=== PATIENT | male | born 1965 | race Caucasian/White ===

== ENCOUNTER 2022-11-08 19:09 | Emergency (ER) | payer SELFPAY ==
--- NOTE | ~2022-11-08 | XR_ITS ---
EXAMINATION: XR chest 2V DATE: 11/08/2022 20:28 INDICATION: Tachycardia and lightheadedness. TECHNIQUE: PA and lateral views of the chest were obtained. COMPARISON: None FINDINGS: Mild streaky bibasilar atelectasis. No pulmonary edema, pleural effusion or pneumothorax. Heart size is normal. Age-indeterminate anterior right fifth-seventh rib fractures. IMPRESSION: 1. Mild streaky bibasilar atelectasis. Reviewed, dictated and finalized at location A.
[2022-11-08 19:07] VITALS: BP 124/79; PULSE 127; RESP 14; TEMP 36.4; O2SAT 95
--- NOTE | 2022-11-08 19:18 | ECG_ITS ---
Measurements Intervals [place] Rate: 124 P: 29 [place]: 169 QRS: 65 QRSD: 82 T: 34 QT: 311 QTc: 448 Interpretive Statements SINUS TACHYCARDIA ABNORMAL RHYTHM ECG NO PREVIOUS ECG AVAILABLE FOR COMPARISON Electronically Signed On 11-09-2022 10:59:33 CDT by Cedric Yo M.D.
[2022-11-08 20:24] LABS: Basophils Percent Auto 0.6 % (0.2-1.2); Eosinophils Absolute Auto 0.1 K/mm3 (0-0.3); Eosinophils Percent Auto 1.5 % (0-4.4); Hematocrit 46.4 % (42.0-52.0); Hemoglobin 15.5 g/dL (14.0-18.0); Immature Granulocyte Absolute 0.01 K/mm3 (0.00-0.031); Immature Granulocyte Percent A 0.1 % (0-0.5); Lymphocytes Absolute Auto 2.55 K/mm3 (0.9-3.2); Lymphocytes Percent Auto 35.3 % (18.3-44.2); Mean Corpuscular HGB Conc 33.4 g/dl (32-36); Mean Corpuscular Volume 92.8 fl (80-100); Mean Platelet Volume 9.7 fl (7.4-10.4); Monocytes Absolute Auto 0.8 K/mm3 (0.1-0.6); Monocytes Percent Auto 10.5 % (2.6-8.5); Neutrophils Absolute Auto 3.8 K/mm3 (1.3-6.7); Platelet Count Result 277 k/mm3 (150-375); Red Cell Distribution Width 14.5 % (11.5-14.5); White Blood Count 7.2 K/mm3 (4.5-10.0)
[2022-11-08 20:34] LABS: Alanine Aminotransferase 39 U/L (6-50); Albumin Level 4.7 g/dL (3.5-5.1); Alkaline Phosphatase 50 U/L (38-126); Anion Gap 5 mmol/L (8-16); Aspartate Amino Transferase 32 U/L (17-59); Bilirubin,Total 0.7 mg/dL (0.2-1.3); Blood Urea Nitrogen 16 mg/dL (9-20); Calcium 9.2 mg/dL (8.4-10.2); Carbon Dioxide 29 mmol/L (22-30); Chloride 101 mmol/L (98-107); Estimated CRCL calculation 104 ml/min; Estimated Glomerular Filt Rate > 60; Glucose 126 mg/dL (65-110); Magnesium 1.6 mg/dL (1.6-2.3); Potassium 4.1 mmol/L (3.4-5.0); Sodium 135 mmol/L (137-145)
[2022-11-08 21:10] LABS: Appearance Urine Clear (Clear); Bilirubin Urine Negative (Negative); Blood Urine Negative (Negative); Color Urine Yellow (Yellow); Glucose Urine UA Negative (Negative); Ketones Urine Negative (Negative); Leukocyte Esterase Ur Negative LEU/UL (Negative); Nitrate Urine Negative (Negative); Protein Urine Negative (Negative); Specific Grav Ur 1.014 (1.001-1.035); pH Urine 6.5 (5.0-9.0)
[2022-11-08 21:17] LABS: Add Urine Microscopic? NO
[2022-11-08] MEDS: MAGNESIUM SULF 1 GM/D5W 100 ML 1 GM/100 ML BAG IVPB (21:21)
[2022-11-08] MEDS: SODIUM CHLORIDE 0.9% IV 1,000 ML 999 ML IV CONT (21:22)
[2022-11-08 21:40] LABS: Free T4 Free Thyroxine Reflex 0.99 ng/dL (0.78-2.19)
--- NOTE | 2022-11-08 21:45 | ED.DIZZY ---
HPI - Dizziness General Chief Complaint: Dizziness Stated Complaint: NEAR SYNCOPE, TACHYCARDIC Time Seen by Provider: 11/08/22 19:34 History of Present Illness HPI Narrative: This is a 57-year-old male, past history of depression and insomnia, with recent increase of his Seroquel dose from 400 mg daily to 600 mg daily, who presents emergency department complaining of anxiety and palpitations. The patient states 2 days ago, he took his first dose of 600 mg Seroquel and felt palpitations approximately 1 hour later. He reduced the dose to 500 mg yesterday without effect. Today he took the 600 mg dose again and approximately 1 hour later felt palpitations, and anxiety. He is no other complaints and denies any other change in his health. Related Data Allergies Allergy/AdvReac Type Severity Reaction Status Date / Time No Known Allergies Allergy Verified 11/08/22 19:16 Review of Systems Review of Systems: CONSTITUTIONAL: Denies fever, chills, or sweats. CARDIOVASCULAR: Palpitations denies chest pain, or edema. RESPIRATORY: Denies cough or dyspnea. GASTROINTESTINAL: Denies abdominal pain, nausea, vomiting, or diarrhea. GENITOURINARY: Denies dysuria or hematuria. SKIN: Denies rash or itching. MUSCULOSKELETAL: Denies back pain, joint pain, or myalgia. NEUROLOGIC: Denies headache, numbness, dizziness, or weakness. PSYCHIATRIC: Anxiety denies depression. PMFSH Past Medical History Medical History Depression Insomnia Surgical History Surgical History No significant past surgical history Social History Social History Smoking status: Former smoker Alcohol intake: never Substance use: never Exam Narrative: GENERAL: Well-developed, well-nourished, and in no acute distress. HEAD: Normocephalic, atraumatic. EYES: PERRLA and EOMI. ENT: Nares clear, no rhinorrhea or epistaxis. Mucous membranes moist. Oropharynx without tonsillar hypertrophy exudate or other lesions. CHEST: Clear to auscultation. No respiratory distress. No wheezes rales or rhonchi HEART: Tachycardic with regular rhythm. No murmur heard. Normal peripheral pulses. ABDOMEN: Soft, nontender, nondistended, normal active bowel sounds. EXTREMITIES: Normal range of motion. No edema. SKIN: Warm, dry, no rash. NEURO: Alert and oriented x3. Moving all 4 limbs purposefully. PSYCH: Normal mood and affect. Course Course Emergency Course: 21:40 - CBC within normal limits. TSH slightly elevated and 4.9 with free T4 within normal limits. Chemistries demonstrate mild hyponatremia with a sodium of 135 and low normal magnesium of 1.6. UA unremarkable. Chest x-ray unremarkable. EKG demonstrates sinus tachycardia without other arrhythmia or changes concerning for ischemia. Patient was given IV fluids and IV magnesium with improvement of his heart rate to the low 90s and overall improvement. I suspect the patient's symptoms are related to his dose of Seroquel. Will discharge with recommendation to follow-up with his primary care doctor and reduce his Seroquel dose. Discussed return emergency precautions including signs/symptoms of ACS and respiratory distress. The patient voiced understanding and is comfortable with the plan. All questions answered to his satisfaction. Vital Signs Vital signs: Vital Signs Temperature 97.5 F L 11/08/22 19:07 Pulse Rate 127 H 11/08/22 19:07 Respiratory Rate 14 11/08/22 19:07 Blood Pressure 124/79 11/08/22 19:07 Pulse Oximetry 95 11/08/22 19:07 Oxygen Delivery Room Air 11/08/22 19:07 Temperature 97.5 F L 11/08/22 19:07 Pulse Rate 89 11/08/22 22:10 Respiratory Rate 17 11/08/22 22:10 Blood Pressure 124/79 11/08/22 19:07 Pulse Oximetry 94 11/08/22 22:10 Oxygen Delivery Room Air 11/08/22 19:07 MDM - Dizziness
[2022-11-08 22:10] VITALS: PULSE 89; RESP 17; O2SAT 94
[2022-11-08 22:20] LABS: Total Triiodothyronine (T3) 1.19 NG/ML (0.97-1.69)
== END 2022-11-08 22:43 | disposition home or self-care (01) ==
PROVIDERS: Emergency Provider Preventive Medicine Aerospace Medicine
DX: R00.0 Tachycardia, unspecified (principal); T43.595A Adverse effect of other antipsychotics and neuroleptics, initial encounter; F32.A Depression, unspecified; G47.00 Insomnia, unspecified; Z87.891 Personal history of nicotine dependence
CPT/HCPCS: 36415; 71046; 80053; 81003; 83735; 84439; 84443; 84480; 85025; 93005; 96365; 99284; J3475; J7030

== ENCOUNTER 2024-06-28 17:32 | Emergency (ER) | payer MEDICARE, SELFPAY ==
--- NOTE | ~2024-06-28 | CT_ITS ---
CT brain wo con Ordering provider: Nery Zendejas PA-C History: 58 years Male with . dizziness . Comparison: None. Technique: CT of the head without contrast. Radiation reduction technique utilized.The dose-length pr oduct was 681 mGy-cm. FINDINGS: BRAIN PARENCHYMA AND CSF SPACES: Mild leukoaraiosis and diffuse cortical atrophy. Mild atheromatous d isease. No midline shift, mass effect or hemorrhage. The brain parenchyma and CSF spaces are otherwi se normal. Empty sella turcica. VISUALIZED PARANASAL SINUSES: Right maxillary sinus disease. Otherwise, Well aerated. MASTOIDS: Well aerated. BONES: The bones appear intact. SOFT TISSUES: Visualized nasopharynx is normal. Superficial soft tissues are normal. IMPRESSION: No acute intracranial findings. Reviewed, dictated and finalized at location A.
--- NOTE | ~2024-06-28 | XR_ITS ---
XR chest 2V Ordering provider: Nery Zendejas PA-C History: 58 years Male with . dizziness . Comparison: November 08, 2022 FINDINGS: MEDIASTINUM: The cardiac silhouette is not enlarged. LUNGS: No infiltrates, effusions or pneumothorax. OTHER: No free air under the diaphragm. IMPRESSION: No acute cardiopulmonary pathology. Reviewed, dictated and finalized at location A.
[2024-06-28 17:32] VITALS: BP 125/76; PULSE 83; RESP 16; TEMP 36.4; O2SAT 94
[2024-06-28 17:37] VITALS: PULSE 82
--- NOTE | 2024-06-28 17:40 | ECG_ITS ---
Test Date: 2024-06-28 17:37:27 Measurements Intervals [place] Rate: 79 P: 28 [place]: 201 QRS: 28 QRSD: 94 T: 34 QT: 368 QTc: 423 Interpretive Statements SINUS RHYTHM MINIMAL Q WAVES- INFERIOR LEADS BORDERLINE T WAVE ABNORMALITY- INFERIOR LEADS BASELINE ARTIFACT- I, AVR, V1, V4 BORDERLINE ECG No previous ECG available for comparison Electronically Signed On 06-28-2024 18:52:27 CDT by Norberto Brewster D.O.
[2024-06-28 17:51] LABS: Basophils Percent Auto 0.3 % (0.2-1.2); Eosinophils Absolute Auto 0.1 K/mm3 (0-0.3); Eosinophils Percent Auto 0.4 % (0-4.4); Hematocrit 44.6 % (42.0-52.0); Hemoglobin 15.2 g/dL (14.0-18.0); Immature Granulocyte Absolute 0.03 K/mm3 (0.00-0.031); Immature Granulocyte Percent A 0.3 % (0-0.5); Lymphocytes Absolute Auto 1.55 K/mm3 (0.9-3.2); Lymphocytes Percent Auto 13.8 % (18.3-44.2); Mean Corpuscular HGB Conc 34.1 g/dl (32-36); Mean Corpuscular Hemoglobin 30.9 pg (26-34); Mean Corpuscular Volume 90.7 fl (80-100); Mean Platelet Volume 9.7 fl (7.4-10.4); Monocytes Absolute Auto 0.7 K/mm3 (0.1-0.6); Monocytes Percent Auto 6.1 % (2.6-8.5); Neutrophils Absolute Auto 8.9 K/mm3 (1.3-6.7); Neutrophils Percent Auto 79.1 % (45.5-73.1); Platelet Count Result 263 k/mm3 (150-375); Red Blood Count 4.92 M/mm3 (4.6-6.20); Red Cell Distribution Width 13.1 % (11.5-14.5); White Blood Count 11.2 K/mm3 (4.5-10.0)
--- NOTE | 2024-06-28 17:53 | ED.DIZZY ---
HPI - Dizziness General Chief Complaint: Dizziness Stated Complaint: Dizzy Time Seen by Provider: 06/28/24 17:53 Source: patient Mode of arrival: EMS Limitations: no limitations History of Present Illness HPI Narrative: Patient is a 58 y/o female who presents to the ED via EMS with report of dizziness. Patient reports he began feeling dizzy around 2:00 p.m. while shopping at [employer]. 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 EMS was then called. Patient describes dizziness as lightheaded and somewhat room spinning sensation. It is worse with moving his head in any direction. He has never had symptoms like this before. He did report having a headache and nausea of earlier today, took ibuprofen and this is improved. He was given Zofran by EMS. Denies vision changes. Denies focal numbness or weakness. Denies chest pain, shortness of breath. Denies ear pain or ringing. Denies recent cough or cold symptoms. Related Data Allergies Allergy/AdvReac Type Severity Reaction Status Date / Time No Known Allergies Allergy Verified 06/28/24 17:47 Review of Systems Review of Systems: All systems reviewed & are unremarkable except as noted in HPI. All systems reviewed & are unremarkable except as noted in HPI and below PMFSH Past Medical History Medical History Depression Insomnia Surgical History Surgical History No significant past surgical history Social History Social History Smoking status: Former smoker Alcohol intake: never Substance use: never Exam Narrative: GENERAL: Chronically ill-appearing, morbidly obese with BMI of 42.6, non-toxic, in no acute distress. HEAD: Normocephalic, atraumatic. EYES: PERRL/EOMI, conjunctivae clear bilaterally. No nystagmus. No dizziness elicited with eye movements alone. ENT: L cerumen impaction. R TM clear, minimal cerumen present in canal. NECK: Supple. No meningeal signs. RESPIRATORY: Airway patent, respirations nonlabored. Clear to auscultation bilaterally, no rales, rhonchi, wheezing. CARDIOVASCULAR: Regular rate and rhythm without murmurs, rubs, or gallops. Peripheral pulses 2+ and equal bilaterally. MUSCULOSKELETAL: Moves all extremities. No gross deformities. SKIN: Warm, dry, normal color. No rashes. NEURO: A&O X3. Speech clear. Follows commands. CN II-XII grossly intact. Sensation grossly intact. Steady gait. No ataxic movements. Dizziness elicited with turning head left, right, up. Strength 5/5 in upper and lower extremities bilaterally. [id number]-ro-[id number] and ltypyq-yb-[id number] testing intact bilaterally. No pronator drift. Equal diesel engine operator strength bilaterally. PSYCHIATRIC: Appropriate mood and affect. Normal interaction. Course Vital Signs Vital signs: Vital Signs Temperature 97.5 F L 06/28/24 17:32 Pulse Rate 83 06/28/24 17:32 Respiratory Rate 16 06/28/24 17:32 Blood Pressure 125/76 06/28/24 17:32 Pulse Oximetry 94 06/28/24 17:32 Oxygen Delivery Autopap 06/28/24 17:32 Temperature 97.5 F L 06/28/24 17:32 Pulse Rate 79 06/28/24 19:54 Respiratory Rate 17 06/28/24 19:54 Blood Pressure 132/95 H 06/28/24 19:54 Pulse Oximetry 100 06/28/24 19:54 Oxygen Delivery Autopap 06/28/24 17:32 MDM - Dizziness MDM Narrative Medical decision making narrative: Patient presented to ED with dizziness that began today, worse with head movements. Vital signs are stable upon arrival. Patient is in no acute distress. He is neurologically intact upon my evaluation. No focal deficits or cerebellar signs. Exam is notable for left cerumen impaction. Debrox and ear irrigation was ordered. Large amount of cerumen irrigated by ED nurse. Patient feeling much better. Repeat exam of here does not reveal any signs of AOE/AOM. EKG with normal sinus rhythm, no concerning ST changes. Patient is denying any chest pain or shortness breath. Oxygen is stable on room air. Troponin is undetectable. Basic laboratory studies with minimal leukocytosis 11.2. H&H is stable. Sodium 131, minimal anion gap of 15. Given fluids. Stable kidney function. Blood glucose 210. No evidence of DKA. Patient is on several medications for diabetes. Magnesium was low 1.4. Given IV replacement. I discussed this with patient. He reports he has history of low magnesium in the past. Had previously been on supplementation, but states he recently ran out of this. CT brain negative. Chest x-ray is clear. Patient given fluids, Zofran, Tylenol, meclizine. On re-evaluation, patient is feeling significantly improved. States dizziness is markedly improved. He has been able to ambulate to and from the bathroom without assistance without issue. States he is ready to go home at this time. Feels comfortable going home. He lives in [place]. Advised to follow-up closely with PCP upon returning home. Will prescribe meclizine and Zofran for home use. Advised strict return precautions, including signs or symptoms of CVA. Patient voiced understanding. Feels comfortable going home. Discharged in stable condition. Remained neurologically intact at time of D/C. Medical Records Attestation: I reviewed the patient's medical records. Lab Data Attestation: I reviewed the patient's lab results. 06/28/24 17:45 06/28/24 17:45 Labs: Lab Results 06/28/24 Range/Units 17:45 WBC 11.2 H (4.5-10.0) K/mm3 RBC 4.92 (4.6-6.20) M/mm3 Hgb 15.2 (14.0-18.0) g/dL Hct 44.6 (42.0-52.0) % MCV 90.7 (80-100) fl MCH 30.9 (26-34) pg MCHC 34.1 (32-36) g/dl RDW 13.1 (11.5-14.5) % Plt Count 263 (150-375) k/mm3 MPV 9.7 (7.4-10.4) fl Immature Gran % (Auto) 0.3 (0-0.5) % Neut % (Auto) 79.1 H (45.5-73.1) % Lymph % (Auto) 13.8 L (18.3-44.2) % [place] % (Auto) 6.1 (2.6-8.5) % Eos % (Auto) 0.4 (0-4.4) % Baso % (Auto) 0.3 (0.2-1.2) % Lymph # (Auto) 1.55 (0.9-3.2) K/mm3 Victoria # (Auto) 0.7 H (0.1-0.6) K/mm3 Eos # (Auto) 0.1 (0-0.3) K/mm3 Baso # (Auto) 0.0 (0.0-0.1) K/mm3 Abs Immat Gran (auto) 0.03 (0.00-0.031) K/mm3 Absolute Neuts (auto) 8.9 H (1.3-6.7) K/mm3 Absolute Nucleated RBC 0.000 (0.0-0.012) K/mm3 Nucleated RBC % 0.0 (0.0-0.2) % PT 13.5 (11.1-14.7) Seconds INR 1.0 APTT 29.4 (22.3-36.8) Seconds Sodium 131 L (137-145) mmol/L Potassium 3.5 (3.4-5.0) mmol/L Chloride 94 L (98-107) mmol/L Carbon Dioxide 22 (22-30) mmol/L Anion Gap 15 H (4-12) mmol/L BUN 9 D (9-20) mg/dL Creatinine 0.74 (0.7-1.3) mg/dL Estim Creat Clear Calc 132 ml/min Estimated GFR > 60 (59 - ) Glucose 210 H (65-110) mg/dL Calcium 8.7 (8.4-10.2) mg/dL Magnesium 1.4 L (1.6-2.3) mg/dL Total Bilirubin 0.8 (0.2-1.3) mg/dL AST 31 (17-59) U/L ALT 44 (6-50) U/L Alkaline Phosphatase 68 (38-126) U/L Troponin I < 0.012 (0.000-0.034) ng/mL Total Protein 8.0 (6.3-8.2) g/dL Albumin 4.6 (3.5-5.1) g/dL Imaging Data Attestation: I personally reviewed and interpreted this imaging study as follows: Radiologist's impression: ITS Impressions Head CT 06/28/24 18:15 IMPRESSION: No acute intracranial findings. Chest X-Ray 06/28/24 18:22 IMPRESSION: No acute cardiopulmonary pathology. ECG Data EKG #1: Attestation: I personally reviewed and interpreted this ECG as follows: ECG completion date: 06/28/24 ECG completion time: 17:37 EKG Interpretation: normal rate (79), sinus rhythm and no ST changes Discharge Plan Discharge Clinical Impression: Left ear impacted cerumen, Hypomagnesemia Benign paroxysmal positional vertigo Qualifiers: Laterality: left Qualified Code(s): H81.12 - Benign paroxysmal vertigo, left ear Patient Disposition: Home Condition: Stable Instructions: Antibiotic Form, Vertigo (ED), Benign Paroxysmal Positional Vertigo (ED), Hypomagnesemia (ED), Dizziness (ED) Additional Instructions: Stay well hydrated. Utilize meclizine as needed for further dizziness. Utilize Zofran as needed for nausea. You may use qqvp-[id number]-dowlxhj Debrox ear drops to help with wax buildup in your ears. Follow-up closely with your primary care doctor for further evaluation. Return to ED if you experience worsening or severe symptoms, severe dizziness, passing out, chest pain, difficulty breathing, numbness or weakness of arm or leg, vision changes, or any other symptoms of concern. Your magnesium was low today. This was replaced in the ED. Follow-up with your primary for further management of this. Continue magnesium supplements as previously prescribed. Patient Language: Wallisian Prescriptions: New meclizine 25 mg tablet 25 mg PO TID PRN (Reason: dizziness) Qty: 15 0RF ondansetron 4 mg tablet,disintegrating 4 mg PO Q8H PRN (Reason: nausea and vomiting) Qty: 15 0RF Follow-up/Referrals: PHYSICIAN NOT ON STAFF,NONSTAFF [Primary Care Provider] - Time of Disposition: 21:07
[2024-06-28] MEDS: ACETAMINOPHEN 500 MG TABLET 1000 MG PO (18:03)
[2024-06-28] MEDS: MECLIZINE HCL 25 MG TABLET PO (18:03)
[2024-06-28] MEDS: SODIUM CHLORIDE 0.9% IV 1,000 ML 999 ML IV CONT (18:03)
[2024-06-28 18:05] LABS: Prothrombin Time 13.5 Seconds (11.1-14.7)
[2024-06-28 18:06] LABS: Partial Thromboplastin Time 29.4 Seconds (22.3-36.8)
[2024-06-28 18:13] LABS: Albumin Level 4.6 g/dL (3.5-5.1); Alkaline Phosphatase 68 U/L (38-126); Anion Gap 15 mmol/L (4-12); Aspartate Amino Transferase 31 U/L (17-59); Bilirubin,Total 0.8 mg/dL (0.2-1.3); Blood Urea Nitrogen 9 mg/dL (9-20); Calcium 8.7 mg/dL (8.4-10.2); Carbon Dioxide 22 mmol/L (22-30); Chloride 94 mmol/L (98-107); Estimated CRCL calculation 132 ml/min; Estimated Glomerular Filt Rate > 60; Glucose 210 mg/dL (65-110); Magnesium 1.4 mg/dL (1.6-2.3); Potassium 3.5 mmol/L (3.4-5.0); Sodium 131 mmol/L (137-145)
[2024-06-28 18:19] LABS: Alanine Aminotransferase 44 U/L (6-50)
[2024-06-28 18:20] LABS: Troponin I < 0.012 ng/mL (0.000-0.034)
--- OUTSIDE RECORDS SUMMARY | 2024-06-28 18:25 | XMS_ITS | Referral Summary ---
Author Organization [facility] Address [address] [place] [id number] Care Team Providers Care Pipe Organ Tuner And Repairer Name Role Phone Pcp, No Primary Care Provider Unavailabl e Allergies No known active allergies Social History Tobacco Use Types Packs/Day Years Used Date Smoking Tobacco: Never Assessed Inadequate Housing Answer Date Recorded Social Determinants: Housing (Overall Score Help er) 0 09/07/2019 Sex and Gender Information Value Date Recorded Sex Assigned at Not on file Legal Sex Male 8:17 PM CDT Gender Identity Not on file Sexual Orientation Not on file Last Filed Vital Signs Vital Sign Reading Time Taken Comments Blood Pressure 145/100 09/07/2019 8:46 PM CDT Pulse 132 09/07/2019 8:46 PM CDT Temperature 36.9 C (98.4 F) 09/07/2019 8:46 PM CDT Respiratory Rate 22 09/07/2019 8:46 PM CDT Oxygen Saturation 95% 09/07/2019 8:46 PM CDT Inhaled Oxygen Concentration - - Weight - - Height - - Body Mass Index - - Plan of Treatment Not on file Insurance Care Teams Pipe Organ Tuner And Repairer Relationship Specialty Start Date End Date Pcp, No PCP - General 09/07/19
--- OUTSIDE RECORDS SUMMARY | 2024-06-28 18:25 | XMS_ITS | Encounter Summary ---
Author Organization [facility] Address [address] [place] [address] Care Team Providers Care Db2 Systems Programmer Name Role Phone , [facility] Primary Care Provider Trinity vailable Scott Morel DO Primary Care Provider [phone] , [facility] Primary Care Provider Trinity vailable Encounter Details Date Type Department Care Team (Late st Contact Info) Description 11/21/2007 Procedure Historic [place] GENERIC DEFAULT Velasquez Adames MD [address] [place] [address] Social History Tobacco Use Types Packs/Day Years Used Date Smoking Tobacco: Never Assessed Sex and Gender Information Value Date Recorded Sex Assigned at Not on file Legal Sex Male 8:06 AM CDT Gender Identity Not on file Sexual Orientation Not on file documented as of this encounter Plan of Treatment Not on file documented as of this encounter Procedures Procedure Name Priority Date/Time Associated Diagnosis Comments COLONOSCOPY Routine 11/21/2007 12:00 AM CDT documented in this encounter Results * COLONOSCOPY (11/21/2007 12:00 AM CDT) 11/21/2007 us Velasquez Adames MD HEALTH MAINTENANCE Final Result documented in this encounter Visit Diagnoses Not on filedocumented in this encounter Care Teams Db2 Systems Programmer Relationship Specialty Start Date End Date [facility] HOSPITAL USERS: [place] FOR HOSPITAL DISCHARGES ONLY / CLINIC USERS: DO NOT USE PCP - General 11/30/17 12/18/17 Scott Moerl DO HOSPITAL USERS: [place] FOR HOSPITAL DISCHARGES ONLY / CLINIC USERS: DO NOT USE PCP - General Family Medicine 12/19/17 01/01/19 , [facility] HOSPITAL USERS: [place] FOR HOSPITAL DISCHARGES ONLY / CLINIC USERS: DO NOT USE PCP - General 01/02/19 documented as of this encounter
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
--- OUTSIDE RECORDS SUMMARY | 2024-06-28 18:25 | XMS_ITS | Clinical Summary ---
Author Organization [facility] Address [address] [place] [address] Care Team Providers Care Millwright Apprentice Name Role Phone Designated, None Primary Care Provider [phone] Allergies No known active allergies Medications omeprazole (PRILOSEC) 20 mg Oral capsule,delayed release(DR/EC)In dications:Diabet es mellitus type II, uncontrolled take 1 capsule by mouth daily Take on an empty stomach. , Active ibuprofen (ADVIL,MOTRIN) 200 mg Oral tabletIndication s:Diabetes mellitus type II, uncontrolled take 200 mg by mouth every 6 (six) hours, Active FREESTYLE LITE STRIPS stripIndications :Diabetes mellitus type II, uncontrolled Test one time daily while on oral therapy. Dx: E11.65, 100 Bottle 4 6 Active Lancets miscIndications: Diabetes mellitus type II, uncontrolled Test one time daily while on oral therapy. Dx: E11.65, 100 Box 4 6 Active ammonium lactate (LAC-HYDRIN) 12 % Topical lotionIndication s:Hyperkeratosis Apply to affected areas of feet twice daily., 1 Bottle 4 6 Active varenicline (CHANTIX) 0.5 mg (11)- 1 mg (42) Oral tablets,dose packIndications: smoking cessation 0.5 mg once daily for 3 days, 0.5 mg twice daily for 4 days, then 1 mg twice daily thereafter, 1 Package 0 6 Active Additional Information Patient not taking.Reported on 04/23/2017 varenicline (CHANTIX) 1 mg Oral tabletIndication s:smoking cessation take 1 tablet by mouth 2 (two) times daily Start this after the starter pack, 60 tablet 1 6 Active Additional Information Patient not taking.Reported on 04/23/2017 amitriptyline (ELAVIL) 10 mg Oral tablet take 10 mg by mouth nightly, Active cephALEXin (KEFLEX) 500 mg Oral capsule take 500 mg by mouth every 8 (eight) hours 1 capsule 2 times a day for 10 days , Active escitalopram oxalate (LEXAPRO) 10 mg Oral tablet take 10 mg by mouth, Active Balsam [place] Oil (VENELEX) 87-788 mg/gram Topical ointment by Topical route 2 (two) times daily, Active LORazepam (ATIVAN) 0.5 mg Oral tablet take 0.5 mg by mouth nightly as needed, Active oxyCODONE-acetam inophen (PERCOCET) 5-325 mg Oral tablet take 1 tablet by mouth every 4 (four) hours as needed, for Pain Active propranolol (INDERAL) 20 mg Oral tablet take 20 mg by mouth 2 (two) times daily, Active diazepam (VALIUM) 10 mg Oral tablet take 10 mg by mouth nightly as needed, for Anxiety Active metFORMIN (GLUCOPHAGE-XR) 500 mg Oral tablet extended release 24 hr tabletIndication s:type 2 diabetes mellitus take 1 tablet by mouth daily, 90 tablet 4 6 Active QUEtiapine (SEROQUEL) 25 mg Oral tablet take 25 mg by mouth 3 (three) times daily, Active atomoxetine (STRATTERA) 60 mg Oral capsule take 60 mg by mouth daily, Active Active Problems Problem Noted Date Diagnosed Date Diabetes mellitus type II, uncontrolled 04/14/19 16 Tobacco abuse 04/14/2015 Alcohol use 04/14/2015 Hyperkeratosis 04/14/2015 Immunizations Immunization Administration Dates Next Due Pneumococcal polysaccharide PPSV23 (Pneumovax) 0 04/14/2015 TDAP (Boostrix/Adacel) 2007 Family History Medical History Relation Name Comments Cancer Father Diabetes Mother High Cholesterol Mother Relation Name Status Comments Father Mother Alive Social History Tobacco Use Types Packs/Day Years Used Date Smoking Tobacco: Every Day Cigarettes 2 30 Smokeless Tobacco: Never Tobacco Cessation:Ready to Q uit: Yes; Counseling Given: Yes Alcohol Use Standard Drinks/Week Comments Yes 0 (1 standard drink = 0.6 oz pur e alcohol) 20 drinks a week PHQ-2 Answer Date Recorded PHQ-2 Total Score 0 04/17/2022 Sex and Gender Information Value Date Recorded Sex Assigned at Not on file Legal Sex Male 3:59 AM CDT Gender Identity Not on file Sexual Orientation Not on file Last Filed Vital Signs Vital Sign Reading Time Taken Comments Blood Pressure 105/78 04/17/2022 9:52 AM CREASING AND CUTTING PRESS FEEDER Pulse 115 04/17/2022 9:52 AM CREASING AND CUTTING PRESS FEEDER Temperature 36.3 C (97.4 F) 04/17/2022 9:52 AM CREASING AND CUTTING PRESS FEEDER Respiratory Rate 16 04/17/2022 9:52 AM CREASING AND CUTTING PRESS FEEDER Oxygen Saturation 97% 04/17/2022 9:52 AM CREASING AND CUTTING PRESS FEEDER Inhaled Oxygen Concentration - - Weight 124.7 kg (275 lb) 04/17/2022 9:52 AM CREASING AND CUTTING PRESS FEEDER Height 177.8 cm (5' 10 ) 04/17/2022 9:52 AM CREASING AND CUTTING PRESS FEEDER Body Mass Index 39.46 04/17/2022 9:52 AM CREASING AND CUTTING PRESS FEEDER Plan of Treatment Health Maintenance Due Date Last Done Comments Diabetes Eye Exam Yearly 1976 Diabetes Urine Microalbumin 1976 COLON CANCER SCREENING 10 YEAR COLONOSCOPY 09/02/2011 Diabetes Hemoglobin A1C 01/07/2016 07/08/19 16, 04/14/2015 Pneumococcal Vaccine: 50+ Years (2 of 2 - PCV) 04/14/2016 04/14/2015 Diabetes Foot Exam 07/07/2016 07/08/2015, 04/14/2015 Shingles (Zoster) Vaccine (1 of 2) 2016 DTAP/TDAP/TD VACCINES (2 - T d or Tdap) 08/31/2017 2007 COVID-19 Vaccine (2 - 2023-2 5 season) 2023 07/07/2020 INFLUENZA VACCINE 11/17/2024 04/05/2017 HPV VACCINES Aged Out No longer eligi ble based on patient's age to complete this topic Procedures Procedure Name Priority Date/Time Associated Diagnosis Comments POC HGB A1C CLINIC Routine 07/08/2015 Diabetes mellitus type II, uncontrolled from Last 3 Months or Most Recently Relevant to Health Maintenance Results * (ABNORMAL) POC HGB A1C CLINIC (07/08/2015) Hemoglobin A1C% (Waived) 5.7(A) 4.8 - 5.6 % POCT Performed By A1C [id number] A1C Ref Range 1 Values less than 5.6%=Normal A1C Ref Range 2 Values 5.7% to 6.4%= Category of increased risk for diabetes/pre-d iabetes A1C Ref Range 3 Values 6.5% or greater = Highly suspicious for diabetes (see Note) A1C Note 1 A1c 6.5% or greater is typical of diabetes, but initally should be confirmed with A1C Note 2 clinical findings and/or other abnormal lab tests such as A1C Note 3 glucose tolerance testing, and/or random blood glucose Blood specimen (specimen) VENOUS BLOOD SPECIMEN / Unknown 07/08/2015 Rashel Erwin MD [facility] Final Result from Last 3 Months or Most Recently Relevant to Health Maintenance Insurance [place] [employer] [place] MEDICARE PART A AND B Care Teams Millwright Apprentice Relationship Specialty Start Date End Date Designated, None, [address] [place] [address] PCP - General 07/12/14
--- OUTSIDE RECORDS SUMMARY | 2024-06-28 18:25 | XMS_ITS | Clinical Summary ---
Author Organization [facility] Address [address] [place] [id number] Care Team Providers Care Turner And Former Automatic Name Role Phone Pcp, No Primary Care [...] Mass Index - - Plan of Treatment Health Maintenance Due Date Last Done Comments Depression Screening 1977 Hepatitis B Vaccine (1 of 3 - 19+ 3-dose series) 1985 CT Colonography 09/02/2011 Cologuard 09/02/2011 Colonoscopy 09/02/2011 Colorectal Cancer Screening 09/02/2011 Fecal Occult Blood 09/02/2011 Sigmoidoscopy 09/02/2011 Pneumococcal Vaccine 50+ (2 of 2 - PCV) 2016 04/14/2015 Shingles Vaccine (1 of 2) 2016 DTaP/Tdap/Td Vaccine (2 - Td or Tdap) 08/31/2017 2007 COVID-19 Vaccine (2023-2 5 season) 2023 Influenza Vaccine (Season Ended) 2024 HPV Vaccine Aged Out No longer eligi ble based on patient's age to complete this topic Hepatitis A Vaccine Aged Out No longe r eligible based on patient's age to complete this topic Meningococcal Serogroup B Vaccine Aged Out No longer eligible based on patient's age to complete this topic Meningococcal Vaccine Aged Out No [place] eligible based on patient's age to complete this topic Insurance MEDICARE Care Teams Turner And Former Automatic Relationship Specialty Start Date End Date Pcp, No PCP - General 09/07/19
[2024-06-28] MEDS: MAGNESIUM SULF 2 GM/WATER 50ML 2 GM/50 ML BAG IVPB (18:38)
[2024-06-28 19:54] VITALS: BP 132/95; PULSE 79; RESP 17; O2SAT 100
[2024-06-28] MEDS: CARBAMIDE PEROXIDE 6.5% OT SOLN 15 ML BTL 5 DROP LEFT EAR (20:20)
== END 2024-06-28 21:40 | disposition home or self-care (01) ==
PROVIDERS: Emergency Provider Physician Assistant
DX: H81.12 Benign paroxysmal vertigo, left ear (principal); H61.22 Impacted cerumen, left ear; E83.42 Hypomagnesemia; Z87.891 Personal history of nicotine dependence; R94.31 Abnormal electrocardiogram [ECG] [EKG]
CPT/HCPCS: 36415; 69209; 70450; 71046; 80053; 83735; 84484; 85025; 85610; 85730; 93005; 96361; 96365; 99284; A9270; J3475; J7030